=== PATIENT | male | born 1990 | race Caucasian/White ===

== ENCOUNTER → 2019-03-19 | Day surgery (SDC) | payer OTHER ==
[~2019-03-19] MED LIST: NORCO 5-325 TA1 EAC1 PO; ROSUVASTATIN CA10 MG PO
--- NOTE | 2019-03-26 07:48 | OP ---
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 PROCEDURE: Right thumb ulnar collateral ligament reconstruction with allograft and Arthrex internal brace augmentation. SURGEON: Fernanda Segura DO. COMMODITY INDUSTRY ANALYST: Ramírez Bear DO ANESTHESIA: General. An approximately 50 mL of a mixture of 1% lidocaine and 0.5% Marcaine. ESTIMATED BLOOD LOSS: 5 mL. SPECIMENS: None. DRAINS: None. COMPLICATIONS: None. CONDITION: Stable. DISPOSITION: PACU to home. ANTIBIOTICS: Ancef 2 grams IV preoperatively. TOURNIQUET TIME: Approximately 70 minutes at 250 mmHg. IMPLANTS: Arthrex internal brace and presewed allograft. INDICATIONS: The patient is a very pleasant 28-year-old male who has had ongoing right thumb pain for the last several months. He states that he injured it approximately 3 months ago while weightlifting. He had hyperflexion type injury to the thumb. He had failed conservative therapies including home exercises, physical therapy, bracing, anti-inflammatories and despite these measures was continued to have significant right thumb pain and instability. He [facility] [address] [place] [address] OPERATIVE REPORT Name: SHIELA ESCALANTE Room: [facility]#: [id number] Admission: 03/19/19 Attend Phys: Fernanda Segura DO Discharge: Date of : 88 Report #: [id number] does work as orthopedic surgery resident and was having trouble gripping instruments while in the operating room. His x-ray showed no acute bony abnormalities and a congruent thumb joint without any significant arthritic change. Given his clinical and imaging findings, I did recommend a right thumb ulnar collateral ligament reconstruction with allograft and internal brace placement. The benefits, risks, complications and alternatives to this procedure were discussed with the patient in detail. These include but are not limited to bleeding, surgical site infection, neurovascular compromise, recurrent instability, rerupture of the tendon, continued pain, need for further surgery, DVT, PE as well as the inherent risks of anesthesia. The patient understands these risks and is agreeable to proceed. Consent was signed in the preoperative holding area and on the chart at time of surgery, operative site was marked. DESCRIPTION OF PROCEDURE: The patient was brought to the operating room and placed supine on the operating table. He was administered general anesthetic. A well-padded tourniquet was placed in the proximal portion of the right upper extremity. The right upper extremity was then sterilely prepped with chlorhexidine scrub and ChloraPrep. He was then draped freely in the usual fashion. A timeout was performed confirming correct patient, site and procedure. Surgical site markings were identified all in the room were in agreement. Procedure began with exsanguination of the right upper extremity with an Esmarch and inflation of the tourniquet to 250 mmHg. Next, we made a midline incision along the medial border of the thumb; this was carried through skin and subcutaneous tissues. Care was taken to protect all neurovascular structures throughout the entirety of the case. Dissection was carried down to the level of the joint capsule, this was then sized again in the midline position and subperiosteal dissection was carried out at the thumb MCP joint. He was noted to have a thickened and fibrotic ulnar collateral ligament. The fibrotic tissue was debulked, we then measured and identified the position for our bone tunnels in the metacarpal head as well as the proximal phalanx base. K wire was placed approximately 7 mm from the distal aspect of the joint line and 3 mm from the dorsal cortex and parallel to the joint line. The proximal phalanx K-wire was placed approximately 3 mm from the proximal joint line and 3 mm from the volar cortex again parallel to the MCP joint. X-rays confirmed appropriate positioning of the K wires. The K wires were then overdrilled with the appropriate drill bit and these were removed. All soft tissue and bone chips were removed from the drill tunnels. We then prepared our allograft and cut it down to the appropriate size. This was sized to be a 2 mm graft. We then utilized the 3.5 mm SwiveLock with a hook and used a FiberTape as well as the allograft and dunked this into the metacarpal head tunnel and tightened down appropriately. We then took one limb of the FiberTape and the allograft and while holding the thumb in a neutral position with approximately 30 degrees of flexion, we then tensioned the graft appropriately and down to the proximal phalanx limb into the tunnel and this was tightened down appropriately as well. At this time, this was noted to restore thumb congruency and it was noted to [address] [address] OPERATIVE REPORT Name: SHIELA ESCALANTE Room: [facility]#: [id number] Admission: 03/19/19 Attend Phys: Fernanda Segura DO Discharge: Date of : 88 Report #: [id number] rest in a neutral position. We then excised the remainder of the allograft in the FiberTape. A gentle stress test was performed and then joint was noted to be extremely stable at this point. We then irrigated the wound with normal saline. The capsular tissue was closed with 0 Vicryl suture, subcutaneous tissue closed with 2-0 Vicryl suture and skin reapproximated with 3-0 nylon. Wound was then dressed with JumpStart dressing followed by 4 x 4s, soft roll and a thumb spica splint was placed. A tourniquet was let down at approximately 70 minutes. The patient tolerated the procedure well without complications, transferred to PACU in stable condition. All needle and sponge counts were correct x 2 and I was present throughout the entirety of the procedure. We did inject approximately 50 mL of a mixture of 0.5% Marcaine and 1% lidocaine as a wrist block as well as around the incision prior to dressing in place. <ELECTRONICALLY SIGNED> By: Fernanda Segura DO 03/26/19 [id number] Segura DO /nt
== END | disposition home or self-care (01) ==
LOC: M.SUR 07:36
DX: S63.641A Sprain of metacarpophalangeal joint of right thumb, initial encounter (principal); M79.644 Pain in right finger(s); Z79.899 Other long term (current) drug therapy; X50.0XXA Overexertion from strenuous movement or load, initial encounter; Y93.89 Activity, other specified; Y92.89 Other specified places as the place of occurrence of the external cause; Y99.8 Other external cause status

== ENCOUNTER 2020-03-04 04:19 | Emergency (ER) | payer OTHER ==
[~2020-03-04] VITALS: Ht 177.8 cm; Wt 79.4 kg
[2020-03-04 06:13] VITALS: BP 139/92
== END 2020-03-04 06:13 | disposition home or self-care (01) ==
LOC: M.ERS 04:19
DX: U07.1 COVID-19 (principal)